=== PATIENT | female | born 1980 | race Caucasian/White ===

== ENCOUNTER 2024-06-27 06:41 | Day surgery (SDC) | payer BC, SELFPAY ==
[2024-06-27] VITALS (10 sets, daily range): BP systolic 114–137; BP diastolic 68–87; BMI 25.4
[2024-06-27] MEDS: NORMOSOL-R/PLASMALYTE-A 1000 IV (11:45)
[2024-06-27] MEDS: DILAUDID 0.5 MG IV (13:56)
[2024-06-27] MEDS: ZOFRAN 4 MG IV (14:05)
[2024-06-27] MEDS: TYLENOL 650 MG PO (14:55)
== END 2024-06-27 15:15 | disposition home or self-care (01) ==
LOC: SDS 06:41
PROVIDERS: ATTENDING PHYSICIAN Otolaryngology
DX: J38.3 Other diseases of vocal cords (principal)
CPT/HCPCS: 31536; 88305